=== PATIENT | female | born 1955 | race Caucasian/White ===

== ENCOUNTER 2024-09-15 15:57 | Emergency (ER) | payer OTHER ==
--- OUTSIDE RECORDS SUMMARY | 2024-09-15 15:59 | XMS REPORT | Continuity of Care Document ---
Author Name Unknown Address [address] [facility] [place] [address] [facility] thconnect Address [address] [facility] [address] [place] [address] Care Team Providers Care Reed Press Feeder Name Role Phone Dianna Wilhelm Attending Clinician Unavailable Narciso Russell Attending Clinician Payers Payer Name Policy Type Policy Number Effective Date Expirati on Date Source FORMERLY [facility] (MEDICARE REPLACEMENT HMO) [id number] 00:00:00 Problems Condition Name Condition Details Condition Category Status Onset Date Resolution Date Last Treatment Date Treating Clinician Comments Source [id number] Stage 3a chronic kidney disease Problem [facility] [id number] Essential (primary) hypertensi on Problem [facility] Gastroesop hageal reflux disease GERD without esophagiti s Problem [facility] [id number] Dysthymia Problem Commo n [facility] 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 Ordering Clinician Indication Dosage Frequency Signature (SIG) Comments Components Source buPROPion HCl ER (XL) 150 MG buPROPion HCl ER (XL) 150 MG 9- 00:00: 00 No 1{table t_in_th e_morni ng} QD buPROPion HCl ER (XL) 150 MG Esomeprazol e Magnesium 40 MG Esomeprazol e Magnesium 40 MG - 00:00: 00 No 1{capsu le} QD Esomeprazo le Magnesium 40 MG glipiZIDE ER 5 MG glipiZIDE ER 5 MG 2021-09 0- 00:00: 00 No 1{table t_with_ food} QD glipiZIDE ER 5 MG Rosuvastati n Calcium 5 MG Rosuvastati n Calcium 5 MG 2021-09 0-05 00:00: 00 No 1{table t} QD Rosuvastat in Calcium 5 MG Aspirin Adult Low Dose 81 MG Aspirin Adult Low Dose 81 MG No 1{table t} QD Aspirin Adult Low Dose 81 MG Vitamin C Vitamin C No Vitamin C Metoprolol Tartrate 50 MG Metoprolol Tartrate 50 MG No 1{table t_with_ food} QD Metoprolol Tartrate 50 MG Calcium + Vitamin D3 600-5 MG-MCG Calcium + Vitamin D3 600-5 MG-MCG No 1{table t_with_ a_meal} QD Calcium + Vitamin D3 600-5 MG-MCG Potassium 99 MG Potassium 99 MG No 1{table t} QD Potassium 99 MG Biotin 5000 MCG Biotin 5000 MCG No Biotin 5000 MCG Vitamin B 12 500 MCG Vitamin B 12 500 MCG No 1{table t} QD Vitamin B 12 500 MCG Magnesium 400 MG Magnesium 400 MG No Magnesium 400 MG Immunizations Ordered Immunization Name Filled Immunization Name Date Status Comments Source Prevnar 20 (PCV20) Prevnar 20 (PCV20) Unknown Completed [facility] Prevnar 20 (PCV20) Prevnar 20 (PCV20) Unknown Completed [facility] Prevnar 20 (PCV20) Prevnar 20 (PCV20) Unknown Completed [facility] Prevnar 20 (PCV20) Prevnar 20 (PCV20) Unknown Completed [facility] Vital Signs Vital Name Observation Time Observation Value Comments S ource height 2024-09-06 11:00:00 65 [in_i] Commo n [facility] weight 2024-09-06 11:00:00 195 [lb_av] Comm on [facility] bmi 2024-09-06 11:00:00 32.45 kg/m2 Comm on [facility] height 2024-05-25 09:20:00 65 [in_i] Commo n [facility] weight 2024-05-25 09:20:00 195.6 [lb_av] Co [facility] temperature 2024-05-25 09:20:00 97.3 [degF] Com [facility] bmi 2024-05-25 09:20:00 32.55 kg/m2 Comm on [facility] oximetry 2024-05-25 09:20:00 99 % Commo n [facility] respiratory rate 2024-05-25 09:20:00 16 /min [facility] blood pressure systolic 2024-05-25 09:20:00 120 mm[Hg] [facility] blood pressure diastolic 2024-05-25 09:20:00 64 mm[Hg] [facility] height 2024-05-25 09:20:00 65 [in_i] Commo n [facility] weight 2024-05-25 09:20:00 195.6 [lb_av] Co mmon [facility] temperature 2024-05-25 09:20:00 97.3 [degF] Com [facility] bmi 2024-05-25 09:20:00 32.55 kg/m2 Comm on [facility] oximetry 2024-05-25 09:20:00 99 % Commo n [facility] respiratory rate 2024-05-25 09:20:00 16 /min [facility] blood pressure systolic 2024-05-25 09:20:00 120 mm[Hg] [facility] blood pressure diastolic 2024-05-25 09:20:00 64 mm[Hg] [facility] height 2024-05-25 09:20:00 65 [in_i] Commo n [facility] weight 2024-05-25 09:20:00 195.6 [lb_av] Co mmon [facility] temperature 2024-05-25 09:20:00 97.3 [degF] Com mon [facility] bmi 2024-05-25 09:20:00 32.55 kg/m2 Comm on [facility] oximetry 2024-05-25 09:20:00 99 % Commo n [facility] respiratory rate 2024-05-25 09:20:00 16 /min [facility] blood pressure systolic 2024-05-25 09:20:00 120 mm[Hg] [facility] blood pressure diastolic 2024-05-25 09:20:00 64 mm[Hg] [facility] height 2024-01-09 15:00:00 65 [in_i] Commo n [facility] weight 2024-01-09 15:00:00 193.0 [lb_av] Co mmon [facility] temperature 2024-01-09 15:00:00 97.2 [degF] Com mon [facility] bmi 2024-01-09 15:00:00 32.11 kg/m2 Comm on [facility] oximetry 2024-01-09 15:00:00 94 % Commo n [facility] respiratory rate 2024-01-09 15:00:00 16 /min [facility] blood pressure systolic 2024-01-09 15:00:00 118 mm[Hg] [facility] blood pressure diastolic 2024-01-09 15:00:00 66 mm[Hg] [facility] height 2023-10-10 14:00:00 65 [in_i] Commo n [facility] weight 2023-10-10 14:00:00 196 [lb_av] Comm on [facility] temperature 2023-10-10 14:00:00 97.4 [degF] Com mon [facility] bmi 2023-10-10 14:00:00 32.61 kg/m2 Comm on [facility] oximetry 2023-10-10 14:00:00 97 % Commo n [facility] respiratory rate 2023-10-10 14:00:00 16 /min Common [facility] blood pressure systolic 2023-10-10 14:00:00 139 mm[Hg] [facility] blood pressure diastolic 2023-10-10 14:00:00 77 mm[Hg] [facility] height 2023-04-09 14:00:00 65 [in_i] Commo n [facility] weight 2023-04-09 14:00:00 200.2 [lb_av] Co mmon [facility] temperature 2023-04-09 14:00:00 96.4 [degF] Com mon [facility] bmi 2023-04-09 14:00:00 33.31 kg/m2 Comm on [facility] oximetry 2023-04-09 14:00:00 94 % Commo n [facility] respiratory rate 2023-04-09 14:00:00 16 /min Common [facility] blood pressure systolic 2023-04-09 14:00:00 128 mm[Hg] [facility] blood pressure diastolic 2023-04-09 14:00:00 83 mm[Hg] [facility] height 2023-04-09 13:40:00 65 [in_i] Commo n [facility] weight 2023-04-09 13:40:00 200.2 [lb_av] Co mmon [facility] temperature 2023-04-09 13:40:00 96.4 [degF] Com mon [facility] bmi 2023-04-09 13:40:00 33.31 kg/m2 Comm on [facility] oximetry 2023-04-09 13:40:00 94 % Commo n [facility] respiratory rate 2023-04-09 13:40:00 16 /min Common [facility] blood pressure systolic 2023-04-09 13:40:00 128 mm[Hg] [facility] blood pressure diastolic 2023-04-09 13:40:00 83 mm[Hg] [facility] height 2022-06-26 09:40:00 65 [in_i] Commo n [facility] weight 2022-06-26 09:40:00 199 [lb_av] Comm on [facility] temperature 2022-06-26 09:40:00 97 [degF] Comm on [facility] bmi 2022-06-26 09:40:00 33.11 kg/m2 Comm on [facility] temperature 2022-03-18 14:00:00 98.6 [degF] Com mon [facility] bmi 2022-03-18 14:00:00 34.21 kg/m2 Comm on [facility] oximetry 2022-03-18 14:00:00 96 % Commo n [facility] respiratory rate 2022-03-18 14:00:00 16 /min Common [facility] blood pressure systolic 2022-03-18 14:00:00 134 mm[Hg] [facility] blood pressure diastolic 2022-03-18 14:00:00 70 mm[Hg] [facility] height 2022-03-18 14:00:00 65 [in_i] Commo n [facility] weight 2022-03-18 14:00:00 205.6 [lb_av] Co on [facility] height 2022-03-18 13:00:00 65 [in_i] Commo n [facility] weight 2022-03-18 13:00:00 205.6 [lb_av] Co [facility] temperature 2022-03-18 13:00:00 98.6 [degF] Com mon [facility] bmi 2022-03-18 13:00:00 34.21 kg/m2 Comm on [facility] oximetry 2022-03-18 13:00:00 96 % Commo n [facility] respiratory rate 2022-03-18 13:00:00 16 /min [facility] blood pressure systolic 2022-03-18 13:00:00 134 mm[Hg] [facility] blood pressure diastolic 2022-03-18 13:00:00 70 mm[Hg] [facility] height 2022-01-01 10:00:00 65 [in_i] Commo n [facility] weight 2022-01-01 10:00:00 206.4 [lb_av] Co [facility] temperature 2022-01-01 10:00:00 97.9 [degF] Com [facility] bmi 2022-01-01 10:00:00 34.34 kg/m2 Comm on [facility] oximetry 2022-01-01 10:00:00 96 % Commo n [facility] respiratory rate 2022-01-01 10:00:00 16 /min Common [facility] blood pressure systolic 2022-01-01 10:00:00 134 mm[Hg] [facility] blood pressure diastolic 2022-01-01 10:00:00 76 mm[Hg] [facility] Encounters Start Date/Time End Date/Time Encounter Type Admission Type Attending Clinicians Care Facility Care Department Encounter ID Source 2024-04-21 09:04:00 Outpatient Dianna Wilhelm [facility] [id number] [facility] 2023-10-10 13:49:00 Outpatient Dianna Wilhelm [facility] [id number] [facility] 2023-10-08 13:38:00 Outpatient Dianna Wilhelm [facility] [id number] [facility] 2023-04-09 13:20:01 Outpatient WilhelmDianna rene [facility] [id number] [facility] 2022-12-23 14:02:01 Outpatient Dianna Wilhelm [facility] [id number] [facility] 2022-06-24 16:19:02 Outpatient Dianna Wilhelm [facility] [id number] [facility] 2022-03-14 11:27:02 Outpatient Dianna Wilhelm [facility] [id number] [facility] 2022-02-07 14:45:02 Outpatient Dianna Wilhelm [facility] [id number] [facility] 2022-01-01 08:59:02 Outpatient Dianna Wilhelm [facility] [id number] [facility] 2024-09-06 00:00:00 2024-09-06 00:00:00 OFFICE VISIT ESTAB PT LEVEL 4 [facility] [id number] [facility] 2024-08-23 00:00:00 2024-08-23 00:00:00 (TEL) [facility] [id number] [facility] 2024-05-25 00:00:00 2024-05-25 00:00:00 OFFICE VISIT ESTAB PT LEVEL 4 [facility] [id number] [facility] 2024-05-25 00:00:00 2024-05-25 00:00:00 SUB ANNUAL MCR WELLNESS VISIT [facility] [id number] [facility] 2024-01-09 00:00:00 2024-01-09 00:00:00 OFFICE VISIT ESTAB PT LEVEL 4 [facility] [id number] [facility] 2023-10-10 00:00:00 2023-10-10 00:00:00 OFFICE VISIT ESTAB PT LEVEL 4 [facility] [id number] [facility] 2023-09-08 00:00:00 2023-09-08 00:00:00 (TEL) [facility] [id number] [facility] 2023-07-30 00:00:00 2023-07-30 00:00:00 (TEL) [facility] ST[facility] [id number] [facility] 2023-05-15 19:00:00 2023-05-15 20:00:00 D2Me Narciso Russell [id number] 2FF [facility] 2023-05-14 00:00:00 2023-05-14 00:00:00 Outpatient DMG DM [id number] [facility] 2023-04-15 00:00:00 2023-04-15 00:00:00 (TEL) STL[facility]C ST[facility] [id number] [facility] 2023-04-09 00:00:00 2023-04-09 00:00:00 INIT ANNUAL MCR WELLNESS VISIT [facility] [id number] [facility] 2023-04-09 00:00:00 2023-04-09 00:00:00 OFFICE VISIT ESTAB PT LEVEL 4 [facility] [id number] [facility] 2023-04-01 00:00:00 2023-04-01 00:00:00 (TEL) [facility]C [facility] [id number] [facility] 2023-01-29 00:00:00 2023-01-29 00:00:00 (TEL) STL[facility]C ST[facility] [id number] [facility] 2022-07-25 00:00:00 2022-07-25 00:00:00 Outpatient DMG DMG [id number] [facility] 2022-07-25 00:00:00 2022-07-25 00:00:00 Outpatient DMG DMG [id number] [facility] 2022-07-25 00:00:00 2022-07-25 00:00:00 Outpatient DMG DMG [id number] [facility] 2022-06-26 00:00:00 2022-06-26 00:00:00 OFFICE VISIT ESTAB PT LEVEL 4 [facility] [id number] [facility] 2022-06-25 00:00:00 2022-06-25 00:00:00 Outpatient DMG DMG [id number] [facility] 2022-04-16 00:00:00 2022-04-16 00:00:00 (TEL) STLMLC ST[facility] [id number] [facility] 2022-03-18 00:00:00 2022-03-18 00:00:00 OFFICE VISIT ESTAB PT LEVEL 4 [facility] [id number] [facility] 2022-03-18 00:00:00 2022-03-18 00:00:00 (MCR WELL) Medicare Wellness [facility] ST[facility] [id number] [facility] 2022-01-01 00:00:00 2022-01-01 00:00:00 OFFICE VISIT NEW PT LEVEL 4 [facility] [id number] [facility] Results Test Description Test Time Test Comments Results Result Co mments Source [id number] 00:00:[id number] 00:00:00result
[2024-09-15] MEDS ORDERED: IBUPROFEN 200 MG TAB PO ONE (17:04)
[2024-09-15] MEDS ORDERED: METOCLOPRAMIDE 5 MG TAB ONE (17:04)
[2024-09-15] MEDS ORDERED: IBUPROFEN 400 MG TAB ONE (17:04)
[2024-09-15] MEDS ORDERED: ACETAMINOPHEN 500 MG TAB ONE (17:04)
--- NOTE | 2024-09-15 17:09 | RAD REPORT ---
EXAM: CT Head Brain Wo Cont HISTORY: head injury COMPARISON: None TECHNIQUE: Multiple contiguous axial images were obtained for a CT of the brain without contrast. Sag ittal and coronal reformats were performed. One or more of the following dose reduction techniques were used: Automated exposure control, adjus tment of the mA and kV according to patient size, and iterative reconstruction. Unless otherwise specified, incidental findings do not require dedicated imaging follow-up. FINDINGS: No evidence of hydrocephalus, intracranial hemorrhage, or extra-axial fluid collection. Moderate periventricular and deep white matter chronic microvascular ischemic changes present. The calvarium is intact. Moderate inflammatory mucosal thickening throughout the paranasal sinuses wi th left more than right maxillary sinus air-fluid levels. Mild soft tissue swelling and possible small hematoma along the right supraorbital margin IMPRESSION: No evidence of acute intracranial abnormality. Nonspecific white matter hypodensities, most suggestive of chronic small vessel ischemic changes. Soft tissue swelling and probable small hematoma along the right lateral superior orbital margin. Inf lammatory paranasal sinus mucosal thickening as above.
--- NOTE | 2024-09-15 17:21 | EDPHYS ---
Physician Documentation [facility] Name: Lilly De Leon Age: 69 yrs Sex: Female : 1955 Arrival Date: 09/15/2024 Time: 15:57 Bed 20 Private MD: ED Physician Jimmie Oshea HPI: 09/15 16:32 This 69 yrs old Female presents to ER via Ambulatory with complaints of ec2 Fall Injury, Head Injury Without LOC-Adult. 16:32 Patient arrives today for evaluation of a head injury. Reports that she tripped and ec2 fell subsequently hit the right mu-ism. No LOC, not on blood thinners. Denies any prodromal symptoms, no chest pain or difficulty breathing. Denies abdominal pain.. Historical: - Allergies: 16:26 No Known Allergies; iw - PMHx: 16:26 Hypertensive disorder; gerd; iw - PSHx: 16:26 Appendectomy; iw 16:27 eye; ankle; iw - Immunization history:: Adult Immunizations up to date. - Infectious Disease History:: Denies. - Social history:: Smoking status: Patient denies any tobacco usage or history of. ROS: 16:32 Constitutional: as per hpi ec2 Exam: 16:32 Constitutional: GEN: No acute distress HEENT: -Head: no deformities -Eyes: EOMI CV: ec2 regular rate LUNGS: no respiratory distress ABD: non-tender SKIN: Contusion to the right forehead noted MSK: No C/T/L spine deformities RUE w/o bony deformity LUE w/o bony deformity RLE w/o bony deformity LLE w/o bony deformity NEURO: moves all extremities equally, GCS 15 (E4, V5, M6) Vital Signs: 16:25 BP 120 / 68; Pulse 66; Resp 16; Temp 98.3; Pulse Ox 95% ; Weight 85.73 kg; Height 5 ft. iw 5 in. ; Pain 4/10; 16:25 Body Mass Index 31.45 (85.73 kg, 165.1 cm) iw 16:25 Pain Scale: Adult iw MDM: 16:20 Medical Screening Exam initiated ec2 16:32 Data reviewed: vital signs, nurses notes. ED course: Patient arrives today for ec2 evaluation after head strike after a ground-level fall. Examination is revealing for well-appearing nontoxic individuals otherwise clinically stable with a reassuring examination. Will obtain CT scan of the head to evaluate for intracranial brain bleed. Additionally considered other process such as C-spine fracture, facial bone fractures. Will give the patient medications for headache as well.. 17:11 ED course: CT scan of the head shows no acute intracranial traumatic pathology. Will ec2 discharge home. Return precautions given.. 09/15 16:29 Order name: CT Head Brain wo Cont; Complete Time: 17:11 ec2 Administered Medications: 17:08 Drug: MetoCLOPramide PO 10 mg PO once Route: PO; cm10 17:38 Follow up: Response: No adverse reaction cm10 17:08 Drug: Acetaminophen PO 1000 mg PO once Route: PO; cm10 17:38 Follow up: Response: No adverse reaction cm10 17:08 Drug: Ibuprofen PO 600 mg PO once Route: PO; cm10 17:37 Follow up: Response: No adverse reaction cm10 Disposition Summary: 09/15/24 17:21 Discharge Ordered Notes: Location: Home ec2 Condition: Stable ec2 Diagnosis - Head Injury, Forehead Contusion ec2 Followup: ec2 - With: Private Physician - When: - Reason: Re-evaluation by your physician Discharge Instructions: - Discharge Summary Sheet ec2 - General Headache Without Cause, [id number] ec2 Forms: - Medication Reconciliation Form ec2 - Antibiotic Education ec2 - Prescription Opioid Use ec2 - Patient Portal Instructions ec2 - Leadership Thank You Letter ec2 Prescriptions: - Compazine 10 mg Oral Tablet - take 1 tablet ORAL route every 8 hours As needed; 10 tablet; Refills: 0, ec2 Product Selection Permitted Signatures: Dispatcher [employer] Adina Jameson RN RN Rosita Haro RN RN cm10 Jimmie Oshea MD MD ec2
--- NOTE | 2024-09-15 17:21 | ER ---
Nurse's Notes [facility] Name: Lilly De Leon Age: 69 yrs Sex: Female : 1955 Arrival Date: 09/15/2024 Time: 15:57 Bed 20 Private MD: Diagnosis: Head Injury, Forehead Contusion Presentation: 09/15 16:24 Chief complaint: Patient states: fell earlier today, she tripped and fell, has a iw hematoma over right eyebrow , denies LOC, not on blood thinners, they wanted me to get checked out. 16:24 Acuity: AZAR 3 iw 16:25 Coronavirus screen: At this time, the client does not indicate any symptoms associated iw with coronavirus-19. Ebola Screen: No symptoms or risks identified at this time. Initial Sepsis Screen: Does the patient meet any 2 criteria? No. Patient's initial sepsis screen is negative. Does the patient have a suspected source of infection? No. Patient's initial sepsis screen is negative. Risk Assessment: Do you want to hurt yourself or someone else? Patient reports no desire to harm self or others. Onset of symptoms was September 15, 2024. 16:25 Method Of Arrival: Ambulatory iw Historical: - Allergies: 16:26 No Known Allergies; iw - PMHx: 16:26 Hypertensive disorder; gerd; iw - PSHx: 16:26 Appendectomy; iw 16:27 eye; ankle; iw - Immunization history:: Adult Immunizations up to date. - Infectious Disease History:: Denies. - Social history:: Smoking status: Patient denies any tobacco usage or history of. Screenin:16 [facility] ED Fall Risk Assessment (Adult) History of falling in the last 3 months, cm10 including since admission Yes- single mechanical fall (1 pt) Confusion or Disorientation No (0 pts) Intoxicated or Sedated No (0 pts) Impaired Gait No (0 pts) Mobility Assist Device Used No (0 pt) Altered Elimination No (0 pt) Score/Fall Risk Level 0 - 2 = Low Risk Oriented to surroundings, Maintained a safe environment, Hourly rounding (assess needs \T\ fall precautionary measures) done. Abuse screen: Denies threats or abuse. Denies injuries from another. Nutritional screening: No deficits noted. 17:39 Tuberculosis screening: No symptoms or risk factors identified. cm10 Assessment: 17:15 General: Appears in no apparent distress. comfortable, Behavior is calm, cooperative, cm10 appropriate for age. Pain: Complains of pain in head Pain currently is 4 out of 10 on a pain scale. Neuro: No deficits noted. Level of Consciousness is awake, alert, obeys commands, Oriented to person, place, time, situation, Appropriate for age. Respiratory: No deficits noted. Airway is patent Respiratory effort is even, unlabored, Respiratory pattern is regular, symmetrical. Derm: Wound noted above right eye Wound is Hematoma. Vital Signs: 16:25 BP 120 / 68; Pulse 66; Resp 16; Temp 98.3; Pulse Ox 95% ; Weight 85.73 kg; Height 5 ft. iw 5 in. ; Pain 4/10; 16:25 Body Mass Index 31.45 (85.73 kg, 165.1 cm) iw 16:25 Pain Scale: Adult iw ED Course: 16:02 Patient arrived in ED. ra3 16:03 Jimmie Oshea MD is Attending Physician. ec2 16:25 Triage completed. iw 16:27 Arm band placed on. iw 16:52 CT Head Brain wo Cont In Process Unspecified. EDMS 16:58 Rosita Haro, RN is Primary Nurse. cm10 17:19 Patient has correct armband on for positive identification. Bed in low position. Call cm10 light in reach. Provided Education on: ER process and procedures.. 17:19 No provider procedures requiring assistance completed. Patient did not have IV access cm10 during this emergency room visit. Administered Medications: 17:08 Drug: MetoCLOPramide PO 10 mg PO once Route: PO; cm10 17:38 Follow up: Response: No adverse reaction cm10 17:08 Drug: Acetaminophen PO 1000 mg PO once Route: PO; cm10 17:38 Follow up: Response: No adverse reaction cm10 17:08 Drug: Ibuprofen PO 600 mg PO once Route: PO; cm10 17:37 Follow up: Response: No adverse reaction cm10 Medication: 17:16 VIS not applicable for this client. cm10 Outcome: 17:21 Discharge ordered by MD. ec2 17:38 Discharged to home ambulatory, with family, cm10 17:38 Condition: good 17:38 Discharge instructions given to patient, Instructed on discharge instructions, follow up and referral plans. medication usage, Demonstrated understanding of instructions, follow-up care, medications, Prescriptions given X 1, 17:39 Patient left the ED. cm10 Signatures: Dispatcher [employer] Adina Jameson RN RN iw Martinez, Clarissa, RN RN 10 Jimmie Oshea MD MD ec2 Elisa Barajas 3
[2024-09-15 17:43] VITALS: BP 120/68; TEMP 98.3; O2SAT 95
== END 2024-09-15 17:39 | disposition home or self-care (01) ==
LOC: ER 15:57
DX: S00.93XA Contusion of unspecified part of head, initial encounter (principal); W01.0XXA Fall on same level from slipping, tripping and stumbling without subsequent striking against object, initial encounter; Y93.9 Activity, unspecified; Y92.9 Unspecified place or not applicable; I10 Essential (primary) hypertension; K21.9 Gastro-esophageal reflux disease without esophagitis
CPT/HCPCS: 70450; 99283